=== PATIENT | male | born 1935 | race Caucasian/White ===

== ENCOUNTER 2018-05-07 06:04 | Day surgery (SDC) | payer MEDICARE ==
[~2018-05-07 06:04] MED LIST: CEFAZOLIN 2 Gram 2 GM/50 ML BAG IVPB ONE; CELECOXIB 100 MG CAPSULE PO ONE; FAMOTIDINE 20MG TABLET PO ONE; MECLIZINE 25 MG TABLET PO ONE; METOCLOPRAMIDE 10 MG TABLET PO ONE; VANCOMYCIN HCL 1,000 MG in DEXTROSE 5 % IN WATER 250 ML IVPB ONE
[2018-05-07] MEDS ORDERED: 0.9 % SODIUM CHLORIDE 10 ML VIAL IVP ONE (06:05)
[2018-05-07] MEDS ORDERED: SEVOFLURANE 250 ML INH ONE (06:05)
[2018-05-07] MEDS ORDERED: *PACU ONLY* KETAMINE HCL 10 MG/ML (20ML) VIAL IV ONE ×2 (06:05)
[2018-05-07] MEDS ORDERED: BUPIVACAINE 0.5% W/EPI MPF 30 ML VIAL IVP ONE (06:05)
[2018-05-07] MEDS ORDERED: KETOROLAC 30 MG/ML VIAL IVP ONE (06:05)
[2018-05-07] MEDS ORDERED: LIDOCAINE 2% MDV (20MG/ML) 20ML VIAL IV ONE (06:05)
[2018-05-07] MEDS ORDERED: TRANEXAMIC ACID 1,000 MG/10 ML ML IV ONE ×2 (06:05)
[2018-05-07] MEDS ORDERED: PROPOFOL 10 MG/ML VIAL IV ONE ×2 (06:05)
[2018-05-07] MEDS ORDERED: ROPIVACAINE HCL (NAROPIN) /PF 5MG/ML 20ML VIAL IV ONE (06:05)
[2018-05-07] MEDS ORDERED: EPHEDRINE SULFATE 50 MG/ML ML IV ONE ×2 (06:05)
[2018-05-07] MEDS ORDERED: DEXAMETHASONE 4 MG/ML 1ML VIAL IVP ONE (06:05)
[2018-05-07] MEDS ORDERED: HYDROMORPHONE HCL 2 MG/ML VIAL IV ONE (06:05)
[2018-05-07] MEDS ORDERED: FENTANYL PF 100MCG/2ML VIAL IV ONE (06:05)
[2018-05-07] MEDS ORDERED: MIDAZOLAM HCL 2MG/2ML VIAL IV ONE (06:05)
[2018-05-07 06:28] LABS: INR 1.9; PROTHROMBIN TIME (PATIENT) 18.8 SECONDS (9.5-12.1)
[2018-05-07 07:17] LABS: ABO GROUP O; ANTIBODY SCREEN NEGATIVE (NEGATIVE); RH TYPE POSITIVE
[2018-05-07] MEDS ORDERED: ACETAMINOPHEN 325 MG TAB PO PRN (10:27)
[2018-05-07] MEDS ORDERED: DIPHENHYDRAMINE HCL 25 MG CAPSULE PO PRN (10:27)
[2018-05-07] MEDS ORDERED: ACETAMINOPHEN W/ CODEINE 300MG/60MG TABLET PO PRN ×2 (10:27)
[2018-05-07] MEDS ORDERED: AL HYDROX/MAG HYDROX 30ML UD PO PRN (10:27)
[2018-05-07] MEDS ORDERED: TRAMADOL HCL 50 MG TABLET PO PRN (10:27)
[2018-05-07] MEDS ORDERED: ZOLPIDEM TARTRATE 5 MG TABLET PO PRN (10:27)
[2018-05-07] MEDS ORDERED: HYDROCODONE/APAP 10/325 TABLET PO PRN (10:27)
[2018-05-07] MEDS ORDERED: MAGNESIUM HYDROXIDE 30 ML UDC PO PRN (10:27)
[2018-05-07] MEDS ORDERED: KETOROLAC 30 MG/ML VIAL IVP PRN ×2 (10:27)
[2018-05-07] MEDS ORDERED: BISACODYL 10 MG SUPP RC PRN (10:27)
[2018-05-07] MEDS ORDERED: ONDANSETRON HCL IV 4 MG/2 ML VIAL IVP PRN (10:27)
[2018-05-07] MEDS ORDERED: HYDROMORPHONE HCL 2 MG/ML VIAL IM PRN (10:27)
[2018-05-07] MEDS ORDERED: NALOXONE 0.4 MG/1 ML VIAL IVP PRN (10:27)
[2018-05-07] MEDS: POTASSIUM CHLORIDE/D5-0.9%NACL 20 MEQ/1,000 ML BAG IV SCH ×2 (12:39→21:29)
--- NOTE | 2018-05-07 14:05 | Rehab Evaluation ---
Patient Information - Patient Information Diagnosis: Right Knee OA Ordered Treatment: PT Evaluate and Treat Status: Initial Evaluation Surgery: Yes (Right TKA) Date of Surgery: 05/07/18 Past Medical/Surgical Hx: PAST MEDICAL/SURGICAL HISTORY Past Surgical History LTKA 2001 pacemaker 20 yrs ago replaced x's 1 hernia repairs bilat shoulder sx c scopes PMH - Respiratory Hx Respiratory Disorders Yes Hx Pneumonia Yes PMH - Cardiovascular Hx Cardiovascular Disorders Yes Hx Edema Yes: right knee down Hx Hypertension Yes: under control on meds Hx Irregular Heartbeat Yes: unsure passed out before pacemaker was placed Hx Pacemaker/Defibrillator Yes: pacemaker 20 yrs ago Exercise Tolerance Good PMH - Neuro Hx Neurological Disorders Yes Hx Dizziness Yes: occassionally when standing up quick PMH - GI Hx Gastrointestinal Disorders No PMH - Hx Genitourinary Disorders No PMH - Endocrine Hx Endocrine Disorders Yes Hx Diabetes Yes: yrs ago 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 Patient bedroom is on the second floor, there are 2 steps to a landing and 12 step to the second floor with a railing on the right side. There are 3 steps to enter the home with no hand rails. There is a tub/shower combination, and the patient will be renting a shower seat. There are no grab bars in the bathroom, but there is an elevated toilet. The patient currently owns a standard walker, and a standard cane.) Precautions: [place], Fall, Other (WBAT on the RLE.) - Time With Patient Total Time Spent With Patient (Min): 30 Treatment Procedures: Detail (Initial evaluation, and gait training.) Subjective Information - Subjective Information Per Patient (Patient did not complain of any pain, but did note some discomfort. ) Objective Data - Mental Status Patient Orientation: Oriented x3 - Visual Perception Appears within normal limits for therapeutic activities - ROM Not within normal limits (R knee was limited status post-surgery as to be expected. Other AROM was within normal limits.) - Strength/Tone Not within normal limits (RLE was not formally tested due to status post-surgery , however strength was functional (i.e. SLR).) - Bed Mobility Independent (IND with supine to sit and scooting in bed.) - Transfers Independent (IND sit to stand transfer.) - Balance Balance Sitting: Good Balance Standing: Good - Sensation Intact - Gait Detail (Patient ambulated approx. 75 feet with the use of a standard walker with supervision assist and assistance pushing the IV pole. Patient is WBAT on the RLE.) Therapy Assessment - Therapy Assessment Detail (Patient was IND with bed mobility, and ambulation, supervision assistance was provided for safety reasons. Patient will progress well with mobility.) Patient Education - Patient Education Teaching Topic: Exercise/Activity (Patient was educated on exercises including ankle pumps, heel slides, glut sets, quad sets, SLR, and hamstring sets. Patient was also educated to use proper technique and required cueing to breath during exercises.) Response: Return Demonstration Teaching Method: Demonstration, Handout Teaching Recipient: Patient Barriers To Learning: Age Related Problem List - Problem List Physical Therapy Problem List: Detail (1) Decreased RLE ROM 2) Decreased RLE strength 3) Nonambulatory on stairs) Goals - Goals Physical Therapy Goals: 1) Patient will ambulate a flight of stairs using proper technique with supervision for safety. Prognosis - Prognosis Good Plan - Plan Physical Therapy Plan: 1 to 2 PT sessions for gait training with stairs.
[2018-05-07] MEDS: CEFAZOLIN 1 Gram 2 GM/100 ML BAG IVPB SCH ×2 (14:35→21:30)
[2018-05-07] MEDS: HYDROCODONE/APAP 10/325 TABLET PO PRN ×2 (16:57→21:34)
[2018-05-07] MEDS: DOCUSATE SODIUM 100 MG CAPSULE PO SCH (21:28)
[2018-05-07] MEDS ORDERED: METOPROLOL SUCC 50 MG TABLET PO SCH (22:00)
[2018-05-07] MEDS ORDERED: METFORMIN ER HCL 500 MG TAB.ER.24H PO SCH (22:00)
[2018-05-07] MEDS ORDERED: LISINOPRIL 20 MG TABLET PO SCH (22:00)
[2018-05-07] MEDS ORDERED: SIMVASTATIN 20 MG TABLET PO SCH (22:00)
[2018-05-07] MEDS ORDERED: WARFARIN 1 MG TABLET PO SCH (22:00)
[2018-05-08] MEDS: POTASSIUM CHLORIDE/D5-0.9%NACL 20 MEQ/1,000 ML BAG IV SCH ×2 (03:27→09:38)
[2018-05-08] MEDS: HYDROCODONE/APAP 10/325 TABLET PO PRN (05:48)
[2018-05-08] MEDS: CEFAZOLIN 1 Gram 2 GM/100 ML BAG IVPB SCH (05:50)
[2018-05-08 06:57] LABS: HEMATOCRIT 32.5 % (42.0-52.0); HEMOGLOBIN 10.3 gm/dl (14.0-18.0)
[2018-05-08 07:10] LABS: CREATININE 1.3 mg/dL (0.7-1.2)
[2018-05-08] MEDS: DOCUSATE SODIUM 100 MG CAPSULE PO SCH (09:37)
[2018-05-08] MEDS ORDERED: RIVAROXABAN 10 MG TABLET PO SCH (10:00)
[2018-05-08] MEDS ORDERED: FERROUS SULFATE 325 MG TAB PO SCH (10:00)
--- NOTE | 2018-05-08 10:15 | Physical Therapy Tx Note ---
Physical Therapy Tx Note - Treatment Note Tolerated: Good Total Time Spent With Patient: 30 Physical Therapy Tx Note: Detail (Patient dressed and in bed upon arrival. Patient had no complaints of pain. Patient ambulated 208' with standard walker IND. Patient is WBAT on RLE. The patient ambulated a flight of 3 and a flight of 7 stairs using single point cane and the hand railing with supervision for safety. With present the patient was instructed of proper car transfer technique, patient was comfortable with technique. Patient has met all PT goals and is D/C from inpatient PT.) Physical Therapy Problem List: Detail (1) Decreased RLE ROM 2) Decreased RLE strength 3) Nonambulatory on stairs) Physical Therapy Goals: 1) Patient will ambulate a flight of stairs using proper technique with supervision for safety. (Goal met) Prognosis: Good Physical Therapy Plan: All inpatient PT goals have been met, patient is D/C from PT. Patient will receive home health services.
--- NOTE | 2018-05-08 10:24 | Rehab Evaluation ---
Patient Information - Patient Information Diagnosis: DJD right knee Ordered Treatment: OT Evaluate and Treat Status: Initial Evaluation Surgery: Yes (Right TKA) Date of Surgery: 05/07/18 Past Medical/Surgical Hx: PAST MEDICAL/SURGICAL HISTORY Past Surgical History LTKA 2001 pacemaker 20 yrs ago replaced x's 1 hernia repairs bilat shoulder sx c scopes PMH - Respiratory Hx Respiratory Disorders Yes Hx Pneumonia Yes PMH - Cardiovascular Hx Cardiovascular Disorders Yes Hx Edema Yes: right knee down Hx Hypertension Yes: under control on meds Hx Irregular Heartbeat Yes: unsure passed out before pacemaker was placed Hx Pacemaker/Defibrillator Yes: pacemaker 20 yrs ago Exercise Tolerance Good PMH - Neuro Hx Neurological Disorders Yes Hx Dizziness Yes: occassionally when standing up quick PMH - GI Hx Gastrointestinal Disorders No PMH - Hx Genitourinary Disorders No PMH - Endocrine Hx Endocrine Disorders Yes Hx Diabetes Yes: yrs ago Hx of NIDDM Yes: on metformin Comment: does not check blood sugar A1C 6.1 PMH - Musculoskeletal Hx Musculoskeletal Disorders Yes Hx Arthritis Yes: right knee PMH - Psych Hx Psychiatric Problems No PMH - Hematology/Oncology Hx Hematology/Oncology Yes Disorders Hx Bruising Yes 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 He has a tub/ shower combination and a walk in shower. He is renting a shower chair. He has a standard height toilet with riser and an elevated toilet. He has 3 steps without a railing at the entrance. His completes all home mgmt, meal prep and laundry; he is responsible for yard work.) Social History: Detail (Supportive spouse) Precautions: [place], Fall, Other (WBAT on the RLE.) - Time With Patient Total Time Spent With Patient (Min): 35 Treatment Procedures: Detail (OT eval low complexity) Subjective Information - Subjective Information Per Patient Objective Data - Pain Pain Present: No (Pt reports no pain currently) - Mental Status Patient Orientation: Oriented x3 - Visual Perception Appears within normal limits for therapeutic activities - ROM Within normal limits ([place]iz UE AROM WNL) - Strength/Tone Within normal limits (Deniz UE strength WNL) - Coordination Appears within normal limits for therapeutic activities - Bed Mobility Independent (Ind with supine to sit and sit to supine.) - Transfers Independent (Ind with sit to stand from EOB.) - Balance Balance Sitting: Good Balance Standing: Good - Sensation Intact - Gait Detail (Pt ambulating in room with 2 wheeled walker Indly.) - ADL's/IADL's Detail (Pt educated and demonstrates learning of modified LE dressing techniques including donning shorts and slippers and doffing sock type slippers. Reviewed kitchen and shower safety, pt verbalizes understanding.) Therapy Assessment - Therapy Assessment Detail (Pt is Ind with LE dressing using modified dressing techniques.) Problem List - Problem List Physical Therapy Problem List: Detail (1) Decreased RLE ROM 2) Decreased RLE strength 3) Nonambulatory on stairs) Occupational Therapy Problem List: Detail (No current OT problems identified.) Goals - Goals Physical Therapy Goals: 1) Patient will ambulate a flight of stairs using proper technique with supervision for safety. (Goal met) Occupational Therapy Goals: No current OT goals identified. Prognosis - Prognosis Good Plan - Plan Physical Therapy Plan: All inpatient PT goals have been met, patient is D/C from PT. Patient will receive home health services. Occupational Therapy Plan: No further IP OT recommended. Thank you for this referral.
--- NOTE | 2018-05-08 21:11 | Operative Note ---
DATE: 05/07/2018 PREOPERATIVE DIAGNOSIS: PROFOUND END-STAGE ARTHROSIS OF THE RIGHT KNEE. POSTOPERATIVE DIAGNOSIS: PROFOUND END-STAGE ARTHROSIS OF THE RIGHT KNEE. PROCEDURE: Cemented right total knee arthroplasty using [employer] Gina II components, with a size 7 [place] Chrome femur, size 7 stemmed tibial baseplate, an 11 mm lipped tibial insert, and a 35 mm all-plastic patella. STAFF SURGEON: TINO POTTS M.D. ANESTHESIA: GENERAL. PREPARATION: CHLORAPREP. INDIVIDUAL CONSIDERATIONS: NONE. PROCEDURE: The patient was taken to the Operating Room and placed supine on the operating table. He had the successful induction with general anesthetic. His right lower extremity was prepped and then draped in the usual fashion. The patient had a midline approach to the knee. Sharp dissection carried down through the skin and subcutaneous tissue. Small veins were coagulated with a Bovie. A medial arthrotomy was performed. The patella was everted and the knee was flexed. He had profound arthrosis with bone loss, exposed bone and diffuse synovitis and a complete synovectomy was performed sharply. Provisional anterior meniscectomies were performed, the capsule was released from the medial proximal tibia, and the fat pad was resected. The initial femoral co pilot hole was then made freehand. The intramedullary femoral cutting jig was placed. It was cut in 7.0 degrees of valgus and adjusted for rotation and secured with pins for a 10 mm resection. The initial transverse cut was then made. The skin guide was placed for the anterior and posterior co pilot holes. It was set for a 10 mm resection. The initial transverse cut was then made. A skin guide was placed in the anterior and posterior co pilot holes. It was found that a size 7 would be appropriate. After cutting the chamfers, osteophytes were removed and a size 7 trial was placed and found to fit well. The tibia was brought forward and the remainder of the meniscal remnants were removed with a Bovie. The extraarticular tibial cutting jig was placed. It was cut in neutral with a 3 degree AP slope. Care was taken to adjust for rotation and flexion using the extraarticular alignment guide and bony landmarks. It was set for a 9 mm resection, keyed off the high lateral side, and secured with pins. When cutting the tibia, care was taken to preserve the PCL insertion on the tibia. After removing osteophytes, I could fit a size 7. It was adjusted for rotation and secured with pins. With an 11 mm trial and the femoral trial, there was excellent motion and stability. Ligamentous balance, rotation, and alignment were thought to be normal. The femoral co pilot holes were impacted and the tibial keel was impacted and the trial components were removed. The patient had a thick patella and roughly 9 mm of bone was cut freehand. I was easily able to fit a 35 patella and the three co pilot holes were drilled. The tourniquet was let down briefly to get bleeders posteriorly and then placed back up again. The knee was then thoroughly irrigated out with pulsatile Betadine and saline to remove any visual or palpable debris. Bony surfaces were dried. A size 7 stemmed tibial baseplate was cemented into place, followed by impaction of the 11 mm lipped tibial insert, followed by cementing in the size 7 [place] Chrome femoral component, followed by cementing in the 35 mm patella. Implant surfaces were compressed, excess cement was removed, and then after the cement had set, there was excellent motion and stability Ligamentous balance, rotation and alignment and patellofemoral tracking were normal. No lateral release was required. After irrigation, hemostasis was obtained with a Bovie. The skin and periosteum were infiltrated with 30 mL of 0.5% Marcaine with Epinephrine. The capsule was then closed with a running #2 Quill. The subcu was closed with running 0 Quill in layers and the skin was closed with kolton. The patient then had a gram of Tranexamic Acid mixed with 30 mL of saline and this was injected into the knee and sterile [place] compressive MATT-type dressing was applied. The patient tolerated the procedure well. Needle and sponge counts were correct. Estimated blood loss was minimal and he was taken back to recovery in good condition. There were no complications. JOB NUMBER: [id number] [facility]
--- NOTE | 2018-05-08 21:50 | Discharge Summary ---
DATE OF ADMISSION: 05/07/2018 DATE OF DISCHARGE: 05/08/2018 DATE OF SURGERY: 05/07/2018 HISTORY: Mr. Cisneros is a delightful 82-year-old male who presents with end- stage arthrosis of his knee. He was admitted after total knee arthroplasty. His hospital course was unremarkable. His discharge hemoglobin was 10.3. He did not require transfusion. DISCHARGE INSTRUCTIONS: The plan is to discharge him to home in the care of his family. Home PT and Visiting Nurse has been arranged. He chronically takes Coumadin and that will cover him for DVT prophylaxis. He will be given [place] for pain. The Visiting Nurse will remove his sutures in two weeks. He will follow-up in my office in four weeks. FINAL DIAGNOSIS/PRIMARY DIAGNOSIS: END-STAGE ARTHROSIS OF THE KNEE. OPERATIONS AND PROCEDURES: CEMENTED TOTAL KNEE ARTHROPLASTY. JOB NUMBER: [id number] [facility]
[2018-05-08] MEDS ORDERED: WARFARIN 1 MG TABLET PO SCH (22:00)
== END 2018-05-08 14:31 | disposition home health service (06) ==
LOC: SUR 06:04 → MEDSURG 11:02 → SUR 05-08 14:31
PROVIDERS: ATTEND Orthopaedic Surgery
DX: M17.11 Unilateral primary osteoarthritis, right knee (principal); I10 Essential (primary) hypertension; Z79.01 Long term (current) use of anticoagulants; E78.00 Pure hypercholesterolemia, unspecified; E11.9 Type 2 diabetes mellitus without complications
CPT/HCPCS: 27447; 01402; 85018; 85014; 85610; 80048; 36416; 82948; 86900; 86901; 86850; J1885; J3370; J0690 ×3; J1170; J3490 ×3; J2795; G8978; G8979 ×2; G8980; G8987; G8988; G8989; C1776; J3480; J7060